=== PATIENT | female | born 1955 | race Caucasian/White ===

== ENCOUNTER 2022-01-10 09:30 | Outpatient (RCR) | payer MEDICARE, OTHER, SELFPAY ==
--- NOTE | 2021-10-27 14:15 | HP.PTEVAL_ITS ---
Patient's Visit Information KISHOR BACK is a 66 year old F referred to Physical Therapy by MARTITA HENDERSON with a diagnosis of L TKA, DOS: 10/21/21. Date of Evaluation: 10/27/21 Physical Therapist: Rishi Basilio DPT - Visit Plan Frequency: 2-3x /Week Duration: 4-6 Weeks Plan: Start with progression L knee ROM focus on end ranges. Add in HS and quad stretching. Joint mobilization to assist with mobility. Progress gait training as able. Ice for pain control, vaso if needed for edema. - Subjective Pt. is here today for her initial evaluation with diagnosis of L TKA. DOS: 10/21/21. Pt. arrives today with FWW with reports of increased knee and thigh pain. I talked to her about this being expected. She denies N/T, no calf pain, no dizziness, no fever. She has been doing her HEP as prescribed by her physician. She is talking Vicodin every 6 hours with Tylenol in between. She had increased pain in her thigh last night, but had been doing better. She noticing increased bruising at inner thigh over the past few days, she reports being co ncerned about this as well. 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 She would like to get back to all of these activities without limitations. - Pain L knee Pain Intensity (Out of 10): 6 Pain Intensity Range: 2, 9 - Objective POSTURE: Pt. has slight flexed posture. She lack TKE on R side with use of FWW. PALPATION: Pt. has tenderness throughout L thigh, medial aspect. Slight bruising. No signs of infection noted. Negative Homans sign. She has increased edema in her L knee 2cm increase at mid patella. NEURO: normal sensation and normal DTR of B Achilles. Pt. is able to rise on heels and toes with balance aide. ROM: L knee: 0-10-68deg. Painful at end ranges. MMT: LLE: ankle 5/5 throughout; knee: ext 0#, flexion 5#; hip: flexion 0#, abd 0#, ext 0#. GAIT: Pt. ambulates with FWW with slight low of TKE during L stance phase. Pt. has minimal flexion during swing phase. No antalgic pattern noted. STAIRS: step to pattern with 2 HR with reciprocal pattern, loading RLE only. - Balance/Special Test Scores Lower Extremity Functional Score: 16 TUG Test Time Seconds: 37 WOMAC Total Score: 44 WOMAC Percentatge: 54.1700 - Goals Goal 1:: LTG: Pt. to be I with HEP for L knee ROM and strength. Goal Time Frame: 4-6 Weeks Goal 2:: STG: Pt. to sleep throughout the night with 0-2/10 pain in LLE. Goal Time Frame: 2-4 Weeks Goal 3:: STG: Pt. to have increased L knee ROM to 0-0-120deg allowing for increased tolerance to all functional mobility. Goal Time Frame: 2-4 Weeks Goal 4:: LTG: Pt. to be able to ambulate without AD for 800'+ with normal gait pattern without increase in symptoms. Goal Time Frame: 4-6 Weeks Goal 5:: LTG: Pt. to negotiate 1 flight of stairs with 1 HR with reciprocal pattern without increase in symptoms. Goal Time Frame: 4-6 Weeks Goal 6:: LTG: pt. to complete TUG with time less than 10 second indicating increase in functional mobility. Goal Time Frame: 4-6 Weeks - Rehabilitation Potential Physical Therapy Diagnosis: Pt. has signs and symptoms consistent with L TKA with subsequent hypomobility, weakness, increased pain, difficulty with gait. Pt. would benefit from PT to address the above limitations progressing back to all recreational and work activities without limitations. Rehabilitation Potential: Excellent - Anticipated Interventions Patient/Client Instruction: Educate patient on: Condition, Plan of Care, Risk Factors, Benefits of Fitness Program For the Purpose of:: To facilitate caregiver knowledge, To improve self management, To prevent re-injury, To improve ability to perform tasks related to life management, To improve tolerance to ADL's Therapeutic Exercise to Include: Strength training, Power training, Endurance training, Coordination, Body mechanics, Postural training, Flexibilty training, Gait and locomotor training, Passive ROM, Active ROM For the Purpose of:: To decrease pain, To decrease swelling/inflammation, To increase ROM, To improve nutrient delivery to tissue, To increase oxygenation perfusion, To improve muscle performance and motor function, To improve gait and locomotor functions, To improve health of tissue, To decrease soft tissue restriction, To increase flexibility/ROM, To improve endurance, To improve balance, To improve safety with gait Manual Therapy Techniques to Include: Mobilization, Passive ROM, Soft tissue mobilization For the Purpose of:: To decrease pain, To decrease swelling/inflammation, To increase ROM, To improve nutrient delivery to tissue, To increase oxygenation perfusion, To improve muscle performance and motor function, To decrease soft tissue restriction, To increase flexibility/ROM Cryotherapy (ice pack, ice massage): Yes Vasopneumatic device: Yes For the Purpose of:: To decrease pain, To decrease swelling/inflammation, To increase ROM Thank you for the opportunity to evaluate your patient. For Medicare and Medicare HMO plans, please review the plan of care and approve it. It will need to be FAXED BACK to us at [phone] for Medicare purposes. For Medicare only, by signing this I certify the plan of care. Please let me know if there are questions or concerns regarding this plan of care. Physician Signature: Date:
--- NOTE | 2021-11-29 14:22 | HP.PTREVAL ---
MARTITA HENDERSON, It has been my pleasure to treat KISHOR BACK over the last 11 visits for L TKA, DOS: 10/21/21. Please see the progress note below for an update on the physical therapy plan of care! Subjective: Pt. reports overall doing well. She still has some soreness with walking and swells with increased working. She has been working at home in basement 3-4 hours at a time. 1-2/10 pain in knee. Pt. arrives without AD. Objective/Function: ROM: L knee 0-2-111deg actively, PROM: 0-0-116deg. PT. has tight hamstring bilat. MMT: Pt. has good strength in BLEs 5-/5 throughout. L knee: ext 24.2#, flexion 17.8#. TU.3sec. GAIT: She ambulates without AD, but does have reduced TKE during stance phase and decreased L knee flexion during swing. I would lik her to work on this to improve her pattern. STAIRS: Pt. negotiates without issues. 1 HR with reciprocal pattern without issues. She is overall doing well. I would like her to have decreased symptoms with end range flexion and end range extension. She has been doing some exercises at home, mostly strengthening. She is planning to hike [place] this summer while on vacation. Plan Plan: I am recommending continued PT to work on strength and decreased symptoms with end range stretching allowing for better tolerance to walking and hiking near future. Balance/Gait/Functional tests - Balance/Special Test Scores Lower Extremity Functional Score: 16 TUG Test Time Seconds: 37 Tug Test: >30sec.=impaired mobility WOMAC Total Score: 44 WOMAC Percentage: 54.1700 Goals Goal 1:: LTG: Pt. to be I with HEP for L knee ROM and strength. Goal Time Frame: 4-6 Weeks Goal Progress: Progressing Goal 2:: STG: Pt. to sleep throughout the night with 0-2/10 pain in LLE. Goal Time Frame: 2-4 Weeks Goal Progress: Goal Met Goal 3:: STG: Pt. to have increased L knee ROM to 0-0-120deg allowing for increased tolerance to all functional mobility. Goal Time Frame: 2-4 Weeks Goal Progress: Progressing Goal 4:: LTG: Pt. to be able to ambulate without AD for 800'+ with normal gait pattern without increase in symptoms. Goal Time Frame: 4-6 Weeks Goal Progress: Progressing Goal 5:: LTG: Pt. to negotiate 1 flight of stairs with 1 HR with reciprocal pattern without increase in symptoms. Goal Time Frame: 4-6 Weeks Goal Progress: Progressing Goal 6:: LTG: pt. to complete TUG with time less than 10 second indicating increase in functional mobility. Goal Time Frame: 4-6 Weeks Goal Progress: Progressing Anticipated Interventions Patient/Client Instruction: Educate patient on: Condition, Plan of Care, Risk Factors, Benefits of Fitness Program For the Purpose of:: To facilitate caregiver knowledge, To improve self management, To prevent re-injury, To improve ability to perform tasks related to life management, To improve tolerance to ADL's Therapeutic Exercise to Include: Strength training, Power training, Endurance training, Coordination, Body mechanics, Postural training, Flexibilty training, Gait and locomotor training, Passive ROM, Active ROM For the Purpose of:: To decrease pain, To decrease swelling/inflammation, To increase ROM, To improve nutrient delivery to tissue, To increase oxygenation perfusion, To improve muscle performance and motor function, To improve gait and locomotor functions, To improve health of tissue, To decrease soft tissue restriction, To increase flexibility/ROM, To improve endurance, To improve balance, To improve safety with gait Manual Therapy Techniques to Include: Mobilization, Passive ROM, Soft tissue mobilization For the Purpose of:: To decrease pain, To decrease swelling/inflammation, To increase ROM, To improve nutrient delivery to tissue, To increase oxygenation perfusion, To improve muscle performance and motor function, To decrease soft tissue restriction, To increase flexibility/ROM Cryotherapy (ice pack, ice massage): Yes Vasopneumatic device: Yes For the Purpose of:: To decrease pain, To decrease swelling/inflammation, To increase ROM Please do not hesitate to contact me at [phone] by phone or if you have questions or concerns regarding this new plan of care! Sincerely, Rishi Basilio DPT
--- NOTE | 2022-01-10 10:05 | HP.PTREVAL_ITS ---
MARTITA HENDERSON, It has been my pleasure to treat KISHRO BACK over the last 20 visits for L TKA, DOS: 10/21/21. Please see the progress note below for an update on the physical therapy plan of care! Subjective: Pt. reports overall doing better. She reports 65% better overall. She continues to C/O increased stiffness at end ranges of motions, especially after being stationary for a bit. She reports walking better, but still has initial pain and pain at night. Objective/Function: ROM: AROM: 0-2-115deg. PROM 0-0-120deg Patient does report increased pain with end range overpressure, noted at medial compartment. MMT: 5/5 throughout without increase in symptoms. GAIT: Pt. tends to slightly limit flexion during swing phase, and lacks slight TKE during stance. Improved both directions with VCing and with increased time walking. TU.3sec no AD. STAIRS: 1 HR reciprocal pattern mild increase with ascending, slightly more in crease with descending. Overall she is doing better. She still c/o increased stiffness at times. I would lover he to have increased TKE during gait as well. She is going on hiking trip in 2 weeks. I will work with her on her limitations progressing to her trip. Plan Plan: I will continue to see her x1 per week leading up to her vacation. Balance/Gait/Functional tests - Balance/Special Test Scores Lower Extremity Functional Score: 48 TUG Test Time Seconds: 8.3 Tug Test: <10 sec.=free mobile WOMAC Total Score: 44 WOMAC Percentage: 54.1700 Goals Goal 1:: LTG: Pt. to be I with HEP for L knee ROM and strength. Goal Time Frame: 4-6 Weeks Goal Progress: Goal Met Goal 2:: STG: Pt. to sleep throughout the night with 0-2/10 pain in LLE. Goal Time Frame: 2-4 Weeks Goal Progress: Goal Met Goal 3:: STG: Pt. to have increased L knee ROM to 0-0-120deg allowing for increased tolerance to all functional mobility. Goal Time Frame: 2-4 Weeks Goal Progress: Progressing Goal 4:: LTG: Pt. to be able to ambulate without AD for 800'+ with normal gait pattern without increase in symptoms. Goal Time Frame: 4-6 Weeks Goal Progress: Progressing Goal 5:: LTG: Pt. to negotiate 1 flight of stairs with 1 HR with reciprocal pattern without increase in symptoms. Goal Time Frame: 4-6 Weeks Goal Progress: Progressing Goal 6:: LTG: pt. to complete TUG with time less than 10 second indicating increase in functional mobility. Goal Time Frame: 4-6 Weeks Goal Progress: Progressing Anticipated Interventions Patient/Client Instruction: Educate patient on: Condition, Plan of Care, Risk Factors, Benefits of Fitness Program For the Purpose of:: To facilitate caregiver knowledge, To improve self management, To prevent re-injury, To improve ability to perform tasks related to life management, To improve tolerance to ADL's Therapeutic Exercise to Include: Strength training, Power training, Endurance training, Coordination, Body mechanics, Postural training, Flexibilty training, Gait and locomotor training, Passive ROM, Active ROM For the Purpose of:: To decrease pain, To decrease swelling/inflammation, To increase ROM, To improve nutrient delivery to tissue, To increase oxygenation perfusion, To improve muscle performance and motor function, To improve gait and locomotor functions, To improve health of tissue, To decrease soft tissue restriction, To increase flexibility/ROM, To improve endurance, To improve balance, To improve safety with gait Manual Therapy Techniques to Include: Mobilization, Passive ROM, Soft tissue mobilization For the Purpose of:: To decrease pain, To decrease swelling/inflammation, To increase ROM, To improve nutrient delivery to tissue, To increase oxygenation perfusion, To improve muscle performance and motor function, To decrease soft tissue restriction, To increase flexibility/ROM Cryotherapy (ice pack, ice massage): Yes Vasopneumatic device: Yes For the Purpose of:: To decrease pain, To decrease swelling/inflammation, To increase ROM Please do not hesitate to contact me at [phone] by phone or if you have questions or concerns regarding this new plan of care! Sincerely, Rishi Basilio DPT
== END 2022-01-10 19:00 | disposition home or self-care (01) ==
LOC: PT 09:30
PROVIDERS: PCP Family Medicine
DX: M17.12 Unilateral primary osteoarthritis, left knee (principal); Z47.1 Aftercare following joint replacement surgery; Z96.652 Presence of left artificial knee joint
CPT/HCPCS: 97016; 97110; 97161; 97164; 97802

== ENCOUNTER 2023-02-10 21:45 | Emergency (ER) | payer MEDICARE, OTHER, SELFPAY ==
--- NOTE | 2023-02-10 | RAD_ITS ---
INDICATION: fracture -- gravity stress view EXAMINATION/TECHNIQUE: X-RAY - LEFT Single AP gravity stress. COMPARISON: X-rays from earlier same day. FINDINGS: SOFT TISSUES: Lateral ankle soft tissue swelling. BONES/JOINTS: Stable nondisplaced fracture of the distal fibula. No significant degenerative changes. No erosive changes. RAD/Ankle 2 Views IMPRESSION: Nondisplaced fracture of the distal fibula. Electronically Signed: Cyril Hughes DO at 0:24 EDT ,
[2023-02-10 21:52] VITALS: BP 204/87; PULSE 89; RESP 18; TEMP 36.2; BMI 27.3
[2023-02-10 21:58] VITALS: BP 204/87; PULSE 89; RESP 16; TEMP 36.2
--- NOTE | 2023-02-10 22:08 | RAD_ITS ---
STUDY: X-RAY - LEFT KNEE REASON FOR EXAM: Female, 67 years old. trauma TECHNIQUE: 4 view(s) of the knee. COMPARISON: None. FINDINGS: Normal visualized distal femur. Normal visualized proximal tibia and fibula. Normal proximal tibiofibular articulation. Status post total knee arthroplasty. The prosthesis appears located. No ostial lysis to suggest loosening. . The soft tissue structures are unremarkable. RAD/Knee 4 or More Views IMPRESSION: Normal x-ray examination of the knee after total knee arthroplasty. Electronically Signed: Leighton Tomas MD at 23:05 EDT ,
--- NOTE | 2023-02-10 22:11 | ED.VIS.LOWEX ---
HPI History of Present Illness Chief Complaint: Lower Extremity Injury Informant: patient Narrative Narrative: Theo patient was mowing a ditch, and she slipped, her left lower extremity twisted, she felt a crack, pain mostly in her ankle. She describes sort of a flexion and a valgus mechanism at the knee, and she thought she injured her knee but it really has not been hurting. There is an area that is swollen a little and she had a total knee remotely. She was able to put weight on her left lower extremity immediately afterwards, but not now that her ankle is more painful and swollen laterally. No other injuries. No prodromal symptoms. Takes baby aspirin due to a remote history of a CABG, no anticoagulants. [facility] Medical History (Updated 02/10/23 @ 22:[address] Otf Conley MD) Diabetes mellitus Essential hypertension Rotator cuff arthropathy of both shoulders Home Medications aspirin 81 mg tablet,delayed release (Adult Aspirin Regimen) 81 mg PO DAILY 02/10/23 [History Last Taken Unknown] tramadol 50 mg tablet 50 mg PO Q6H PRN pain 3 days #12 tabs 02/11/23 [Rx Last Taken Unknown] Allergy/AdvReac Type Severity Reaction Status Date / Time aliskiren [From Tekturna] Allergy Rash Verified 02/10/23 22:04 hydralazine Allergy Rash Verified 02/10/23 22:04 metoprolol [From Toprol XL] Allergy Other Verified 02/10/23 22:04 valsartan [From Diovan] Allergy Anaphylaxis Verified 02/10/23 22:04 nebivolol [From Bystolic] AdvReac Shortness Verified 02/10/23 22:04 of breath nisoldipine [From Sular] AdvReac Swelling Verified 02/10/23 22:04 Surgical History (Updated 02/10/23 @ 22:17 by Amor Estrada) History of appendectomy S/P triple vessel bypass (~2016) Social History Smoking Status: Never smoker ROS ROS ED Constitutional Constitutional ED: Denies chills or fever(s) Musculoskeletal Musculoskeletal: Reports extremity pain; Denies neck pain Integumentary Denies Abrasions, rash or wounds Neurologic Neurologic: Denies paresthesias or weakness EXAM Physical Exam Const Vital Signs: 02/10/23 21:52 02/10/23 21:58 Temperature 97.2 F L 97.2 F L Temperature Source Temporal Temporal Pulse Rate 89 89 Respiratory Rate 18 16 Blood Pressure 204/87 H 204/87 H Blood Pressure Mean 126 126 Positive well nourished and well developed General Appearance ED: well developed and NAD Neck full ROM and supple Back/Spine normal ROM and normal to inspection Extremity Extremity Narrative: Limited range of motion of the left ankle. Swollen laterally and tender at the malleolus there, nontender to medial malleolus, base of the fifth metatarsal, proximal fibula. No deformity. Nontender throughout the rest of the foot. No bony tenderness throughout the left knee, and she is full range of motion. There is some mild swelling at the lateral aspect anteriorly at the joint line, just lateral to the patella. All ligaments are stable with short endpoints and no pain on stressing. Neuro oriented x3, no focal motor deficits and no sensory deficits noted Sensorium / Orientation: alert Psych mental status grossly normal and thought process normal Skin no wounds Rashes: no rashes MDM MDM MDM Narrative Medical decision making narrative: Three-view x-ray series of the left ankle shows a nondisplaced oblique distal fibula fracture on my interpretation, but difficult to tell on radiography if it is a Mena B or a Mena C. Her knee x-rays 4 views of my interpretation negative for any acute fracture or dislocation radiology in agreement with both of these. Discussing with the patient, I recommend nonweightbearing status and follow-up with orthopedics. She states in a few days she is leaving for [place] on a trip to visit family. She really wants to be able to bear weight if it is safe. Therefore although she was okay waiting for it, I did a gravity stress view of the fracture. 1 view on my interpretation shows no opening of the mortise. Discussed with Dr. Norris, agrees this is more consistent with a Mena B and patient should be okay with partial weightbearing in the boot, I discussed all this with her so we will skip crutches and she is comfortable with that plan. Offered analgesics but she declined. Radiography Diagnostic Testing: Clinical Impression(s) from Imaging Studies Knee X-Ray 02/10/23 22:08 IMPRESSION: Normal x-ray examination of the knee after total knee arthroplasty. Electronically Signed: Leighton Tomas MD at 23:05 EDT Reading Location ID and State: [id number] / Tel , Service support , Ankle X-Ray 02/10/23 22:28 IMPRESSION: Acute nondisplaced oblique fracture of the distal left fibula at the level tibial plafond with lateral soft tissue swelling. Electronically Signed: Leighton Tomas MD at 23:06 EDT , Management Discussion w/another healthcare provider: [employer]ice Discharge Plan Triage Chief Complaint: Lower Extremity Injury ED Provider: Otf Conley Dx/Rx/DC Orders Clinical Impression: Sprain of left knee, Closed fracture of left distal fibula Instructions: ED Ankle Fracture, Distal Fibula Prescriptions: New tramadol 50 mg tablet 50 mg PO Q6H PRN (Reason: pain) 3 Days Qty: 12 0RF Continued aspirin [Adult Aspirin Regimen] 81 mg tablet,delayed release (DR/EC) 81 mg PO DAILY Primary Care Provider: Denise Quinteros Referrals: Hema Gillespie DO [Med Staff - Active Staff] - As soon as possible (call for appt) Denise Quinteros DO [Primary Care Provider] - Disposition Disposition: Home, Self Care
--- NOTE | 2023-02-10 22:28 | RAD_ITS ---
STUDY: X-RAY - LEFT ANKLE REASON FOR EXAM: Female, 67 years old. trauma TECHNIQUE: 3 view(s) of the ankle. COMPARISON: None. FINDINGS: Acute nondisplaced oblique fracture of the distal left fibula at the level of tibial plafond. Normal medial and lateral malleoli. Normal tibiotalar articulation and ankle mortise. Normal visualized talus and calcaneus. The visualized subtalar, talonavicular, calcaneocuboid and tarsal articulations are normal. Associated lateral soft tissue swelling. RAD/Ankle min 3 Views IMPRESSION: Acute nondisplaced oblique fracture of the distal left fibula at the level tibial plafond with lateral soft tissue swelling. Electronically Signed: Leighton Tomas MD at 23:06 EDT ,
== END 2023-02-11 00:47 | disposition home or self-care (01) ==
PROVIDERS: Emergency Provider Emergency Medicine; PCP Family Medicine; Visit Provider Emergency Medicine
DX: S82.435A Nondisplaced oblique fracture of shaft of left fibula, initial encounter for closed fracture (principal); E11.9 Type 2 diabetes mellitus without complications; I10 Essential (primary) hypertension; S83.92XA Sprain of unspecified site of left knee, initial encounter; Z95.1 Presence of aortocoronary bypass graft; Z79.82 Long term (current) use of aspirin; Z90.49 Acquired absence of other specified parts of digestive tract; W18.49XA Other slipping, tripping and stumbling without falling, initial encounter; Y93.89 Activity, other specified; Y92.89 Other specified places as the place of occurrence of the external cause
CPT/HCPCS: 73564; 73600; 73610; 99283

== ENCOUNTER → 2023-03-02 | Outpatient (CLI) | payer MEDICARE, OTHER, SELFPAY ==
--- NOTE | 2023-03-02 14:51 | VDLE_ITS ---
Reason For Study: swelling Procedure LEFT This is a venous duplex using B-mode, color GSV is normal. flow and spectral Doppler. CFV is compressible, spontaneous, phasic, Exam performed in department. competent, and demonstrates normal The exam was abbreviated due to the COVID 19 augmentation. protocol. FV is compressible, spontaneous, phasic, The exam was diagnostic. competent and demonstrates normal A preliminary report was called and/or faxed augmentation. to Lashay Winters. POP V is compressible, spontaneous, phasic, competent and demonstrates normal augmentation. T/P Trunk is compressible. PTV is compressible. LT PerV is compressible. Heterogeneous area behind the knee measuring 2.08 x .85 cm. Area is nonvascular. VL/Venous Duplex US, Unilateral Interpretation Summary Deep veins of the left lower extremity are patent and compressible segmentally. There is no evidence of left lower extremity deep vein thrombosis. Valvular competence appears intac t within the proximal deep venous system on the left . The left great saphenous vein appears patent a nd compressible segmentally. A non-vascular, heterogeneous structure is noted in the left popli teal space, measuring 2.08 cm x 0.85 cm. This probably represents a popliteal cyst. Clinical correlat ion is advised.. Ordering Physician: Lashay Winters Performed By: Ramirez Davis RVT
== END | disposition home or self-care (01) ==
LOC: CVS 14:50
PROVIDERS: PCP Family Medicine; Referring Provider Physician Assistant Surgical; Visit Provider Physician Assistant Surgical
DX: R22.42 Localized swelling, mass and lump, left lower limb (principal)
CPT/HCPCS: 93971

== ENCOUNTER → 2023-10-31 | Outpatient (CLI) | payer MEDICARE, OTHER, SELFPAY ==
--- NOTE | 2023-10-31 08:04 | CR.ITP_ITS ---
Diagnosis General Information Admitting Diagnosis: S/P PCI RAD Secondary Diagnosis: S/P CABG x 3 2017 Personal Learning Style:: Audio/Visual and Written Barriers to Learning: Vision Impairment Stage of change r/t lifestyle modifications:: Action Gave educational material for:: Treating Heart Disease, How The Heart Works, What it means to have Heart Disease, How Coronary Artery Disease is Diagnosed, Heart Procedures, What Heart Medications Do, Risk Factors & Modifications, Living an Active Life, Nutrition, Emotions & Heart Disease, Stress Management & Relaxation and Sleep Disorders & Heart Disease Education/Goals Individual Counseling: Initial Assessment: Abnormal Cholesterol Levels, High Blood Pressure and Overweight/Obesity Cardiac Rehabilitation Goals Personal Goals: Initial Assessment: Improve energy level, Participate in home exercise program, Get back to work, or to resume activities faster, Improve muscle strength and endurance and Improve diet and eating habits (eat healthier) Scale for measuring improvement of personal goals Diagnosis & Disease Process Outcomes/Goals: Pt IDs own risk factors & lifestyle modifications by Session 10, Verbalizes symptoms of angina & response by session 3. and Pt independently manages Plan/Interventions: Assist Pt to ID & engage in lifestyle modification to reduce CVD risk, Instruct on individual risk factors, Review symptoms of angina & emergency actions and Review secondary diagnosis & identify educational needs. Safety Referral to Physical Therapy: Yes Referral to [facility] Case Management: No Fall Risk Assessed:: No Assistive Devices:: None Exercise - Initial Assessment Visit Date of Eval: 10/31/23 Session #:: 0 (pre-program evaluation) Mets: Pre-: >7 METS for 30 minutes by discharge Physician Prescribed Exercise Modalities: Treadmill, Rower and Airdyne Frequency: 3x/week for 12 weeks [36 sessions] Intensity: 60-80% of age predicted maximum heart rate reserve Duration: 30 - 45 minutes Current METSs:: 3.0 Target Heart Rate:: 100-129 Resting Blood Pressure: 136/74 EKG Type: NSR Current Physical Activity or Exercising minutes: Sits < 3 hours daily. very ph ysically active. Currently walking about 2 mi. Outcomes & Goals Goals:: Verbalizes understanding of THR, RPE & goal METS by session 6, Documents in home exercise log/reports 30 min aerobic 5 day/wk by DC and Demonstrates accurate pulse taking by DC Intervention & Plan Exercise Program Goals: Instruct on personal THR & RPE, Instruct on MET level & personal MET goal, Show patient to take own pulse /validate performance until accurate and Instruct on home exercise Physical Activity Home Exercise Physical Activity - Home Exercise: Safe Exercise, Warm-up, Self-monitoring, Cool-Down, Home Exercise > 30 min Daily and Sitting Time <3 hours/daily Outcomes & Goals Outcomes/Goals: Demonstrates correct Warm-up/exercise Cool-Down (S3) if = 2.5 METs, Verbalizes symptoms of exercise intolerance by Session 3 (S3) and Demonstrate safe equipment use (S3) & follows exercise prescrition (6) Intervention & Plan Plan/Intervention: Instruct warm-up & cool-down if exercising at > 2 METs, Instruct on symptoms of exercise intolerance & actions to take, Instruct & monitor on saf and Assess intial functional capacity & safety risk Nutrition - Initial Assessment Program Goals Nutrition Program Goals Patient has diagnosis of Hyperlipidemia (ICD E78)?: Yes Visit Date of Eval: 10/31/23 Session #:: 0 (pre-program evaluation) Cholesterol/Lipids (Other Core Measures) Determine presence & major risk factors that modify LDL goal: Family history of premature CHD in Male < 55 years: female <65 yearsFa and Age men > 45 years; women >/= 55 years Outcomes/Goals: Pt IDs own risk factors & lifestyle modifications by Session 10, Verbalizes symptoms of angina & response by session 3. and Pt independently manages Intervention/Plan: Instruct on personal lipid levels & lipid goals/NCEP guidelines and Instruct on cholesterol Diabetes (Other Core Measures) Diabetes Type: Not Applicable Weight Mgt (Other Care) Not Applicable: Yes Height: 5 ft 3 in Weight:: 155 lb BMI: 27.4 Diagnosis Overweight/Obesity BMI> 30% ICD-10 E66: No Diagnosis High BMI/Morbid Obesity BMI> 35% ICD-10 Z68: No Outcomes/Goals: Pt sets, maintains & shows weight loss goal & trend during rehab Intervention/Plan: Instruct on ideal BMI & set weight loss goal w/patient Healthy Eating Habits Will attend diet classes:: Yes Outcomes/Goals:: Consume diet rich in vegs,fruits,whole grain/high fib er,fish,lean meat and Limit sat/trans fats,cholesterol & added salts & sugars Intervention/Plan:: Assess current eating habits Education Gave educational materials for:: Healthy eating Core - Initial Assessment Visit Date of Eval: 10/31/23 Session #:: 0 (pre-program evaluation) Medication Compliance Preventative Medication(s):: Aspirin, Clopidogrel/P2Y12 inhibit, Statin/lipid and Beta hardeep H/O mental health issues: depression, anxiety, or addiction?: No Doesn?t believe in the benefits of treatment?: No Believes medications are unnecessary or harmful?: No Expresses concern over the cost of medications?: No Outcomes/Goals: Verbalizes medications,desired effect & common side effects @ DC, Pt self-reports following medication regimen and Keeps card in wallet w/medications listed by DC Interventions/plans: Instruct on medication effects & side effects, Review medication list w/patient every two weeks and Instruct importance of taking meds as ordered & assist problem solving Tobacco Use Tobacco Use: Non-smoker Hypertension Hypertension Diagnosis:: Hypertension ICD-10 I10 Resting Blood Pressure:: 136/74 [place] [employer] Hypertension Guidelines Outcomes/Goals: Able to verbalize/achieve optimal blood pressure <130/80 and Incorporates diet changes & exercise for blood pressure control by DC Interventions/plan: Instruct on optimal blood pressure, hypertension & medications and Instruct on effects of sodium, alcohol, stress, exercise &hypertension Tobacco Cessation Referral Smoking Cessation Referral:: No Individual Education/Counseling:: No Education Schedule Given:: Yes Psychosocial - Initial Assess VIsit Date of Eval: 10/31/23 Session #:: 0 Not Applicable: Yes History of previous Mental disease:: No Target Goals Target Goals Psychosocial Test Tool Used:: [employer] Mobile QOL Cardiac and PHQ-9 Questionnaire phq-9 Severity Referral to Behavioral Health PS - Interventions: Yes: Attend Stress Management Classes and No: Referral to Behavioral Health if PHQ-9 score >9:, No: Referral to [facility] and No: Referral to Physician if PHQ-9 if score is 5-9: Outcomes/Goals: See list Psychosocial Outcomes/Goals:: ID's personal stressors & 2 strategies to manage stress by discharge Intervention/Plan: See List Interventions/Plan:: Assess stressors,coping strategies & signs of derpression on admission, Instruct/assist pt to develop coping & personal stress Mgt strategies, Instruct patient to recognize signs & symptoms of depression and Instruct patient to recog Patient Health Questionnaire PHQ-9 Screening Initial Assessment: 1. Little interest or pleasure in doing things: Not at all 2. Feeling down, depressed, or hopeless: Not at all 3. Trouble falling or staying asleep, or sleeping too much: Several days 4. Feeling tired or having little energy: Several days 5. Poor appetite or overeating: Not at all 6. Feeling bad about yourself -- or that you are a failure or have let yourself or your family down: Not at all 7. Trouble concentrating on things, such as reading the newspaper or watching television: Not at all 8. Moving or speaking so slowly that other people could have noticed. Or the opposite - being so fidgety or restless that you have been moving around a lot more than usual: Not at all 9. Thoughts that you would be better off , or of hurting yourself in some way: Not at all How difficult have these problems made it for you to do your work, take care of things at home, or get along with other people?: Not difficult at all Total Score: 2 ZENIA-Q SV Test Statements CAD is a disease of the arteries in the heart: False Examples of risk factors for heart disease: True Angina is chest pain or discomfort: True The benefits of resistance training include: True Eating more meat and dairy products: False Anti-platelet medications such as aspirin are important: True The only effective way to manage stress: False An exercise warm-up slowly increases heart rate: True Prepared, processed foods usually have high sodium: True Depression is common after a heart attack: True The statin medications lower cholesterol: True To control blood pressure, lower the amount of sodium: True If someone gets chest discomfort during walking: False Transfats are partially hydrogenated vegetable oils: True Sleep apnea that is not treated increases the risk: False To control cholesterol, one should become a vegetarian: False Someone knows if he/she is exercising at the right level: False Diabetes cannot be prevented with exercise & health eating: False Stress is a large risk for heart attack: True A diet that can help lower blood pressure is rich in: True Total Score Total Correct Responses: 19 Self-Efficacy 6-Item Scale Initial Assessment: We would like to know how confident you are in doing certain activities. Please select your confidence level for: Fatigue Select Number: 10 Physical Discomfort or Pain Select Number: 8 Emotional Distress Select Number: 8 Other Symptoms or Health Problems Select Number: 10 Different Tasks and Activities Select Number: 10 Medication Select Number: 10 Total Score:: 9 Nutrition Survey Nutrition Survey Instructions Scoring Instructions Nutrition Survey Initial: Have you lost >10 lbs over the past 2 months without trying?: No Are you following a special diet at home for diabetes, low fat, or low salt?: Yes Are you interested in meeting with a dietitian for help understanding your diet?: No Do you eat less than 3 meals a day?: No Do you eat fatty meats (baer, sausage, ribs, etc), fried foods, desserts, large amounts of salad dressings, margarine, butter, or cheese most days?: No Do you have food allergies? [Enter types in comment field]: No Do you eat in restaurants more than 3 times a week?: No Do you season food with salt, seasoning salt, or garlic salt?: Yes (Macadamia Nuts) Do you used canned, boxed, frozen meals, or soups, seasoning packets?: No Total Score:: 2 Exercise - Final/Discharge Physician Prescribed Exercise Modalities: Treadmill, Rower and Airdyne Frequency: 3x/week for 12 weeks [36 sessions] Intensity: 60-80% of age predicted maximum heart rate reserve Current METSs:: 3.0 Target Heart Rate:: 100-129 Nutrition - 30-Day Assessment Weight Mgt (Other Care) Height: 5 ft 3 in Weight:: 155 lb BMI: 27.4 Nutrition - 60-Day Assessment Weight Mgt (Other Care) Height: 5 ft 3 in Weight:: 155 lb BMI: 27.4 Core - 30-Day Assessment Visit Session #:: 0 (pre-program evaluation) Core - Final Assessment Hypertension Resting Blood Pressure:: 136/74 [place] [employer] Hypertension Guidelines Core - 60-Day Assessment Hypertension Resting Blood Pressure:: 136/74 [place] [employer] Hypertension Guidelines Psychosocial - 30-Day Assess Target Goals Target Goals Referral to Behavioral Health PS - Interventions: Yes: Attend Stress Management Classes and No: Referral to Behavioral Health if PHQ-9 score >9:, No: Referral to [facility] and No: Referral to Physician if PHQ-9 if score is 5-9: Psychosocial - 60-Day Assess Target Goals Target Goals Referral to Behavioral Health PS - Interventions: Yes: Attend Stress Management Classes and No: Referral to Behavioral Health if PHQ-9 score >9:, No: Referral to [facility] and No: Referral to Physician if PHQ-9 if score is 5-9: Psychosocial - 90-Day Assess Target Goals Target Goals Referral to Behavioral Health PS - Interventions: Yes: Attend Stress Management Classes and No: Referral to Behavioral Health if PHQ-9 score >9:, No: Referral to [facility] and No: Referral to Physician if PHQ-9 if score is 5-9: Psychosocial - Final Assessmen Target Goals Target Goals Referral to Behavioral Health PS - Interventions: Yes: Attend Stress Management Classes and No: Referral to Behavioral Health if PHQ-9 score >9:, No: Referral to [facility] and No: Referral to Physician if PHQ-9 if score is 5-9: Nutrition - 90-Day Assessment Weight Mgt (Other Care) Height: 5 ft 3 in Weight:: 155 lb BMI: 27.4 Nutrition - Final Assessment Program Goals Patient has diagnosis of Hyperlipidemia (ICD E78)?: Yes Weight Mgt (Other Care) Height: 5 ft 3 in Weight:: 155 lb BMI: 27.4
--- NOTE | 2023-10-31 08:04 | PCM.CR.HP2 ---
CR - History & Physical General Arrival date:: 10/31/23 Arrival time:: 08:05 Date of Referral:: 10/19/23 Date of CR Evaluation:: 10/31/23 Referring Physician: Dr. Rukhsana Ley [facility], [place], [place] Primary Diagnosis: PCI w/coronary stenting History of Present Cardiac Event Onset Date Coronary Artery Bypass Graft:: Yes Vessel: 05/31/2017 PTCA or coronary stenting:: Yes Vessel: RAD Type of Symptoms:: Heaviness in the chest, burning sensation across the upper chest. More frequent episodes. Interventions with present event:: Stress, Echocardiogram, Heart cath Were there any complications?: None Medications Ambulatory Orders Medication Instructions Recorded aspirin 81 mg tablet,delayed 81 mg PO DAILY 02/10/23 release (Adult Aspirin Regimen) tramadol 50 mg tablet 50 mg PO Q6H PRN pain 3 days #12 02/11/23 tabs aspirin 81 mg tablet,delayed 81 mg PO DAILY 10/31/23 release (Adult Aspirin Regimen) clonidine HCl 0.2 mg tablet 0.2 mg PO TID 10/31/23 clopidogrel 75 mg tablet (Plavix) 75 mg PO DAILY 10/31/23 coQ10 (ubiquinol) 100 mg capsule 200 mg PO DAILY 10/31/23 (Qunol Jerry CoQ10) furosemide 20 mg tablet (Lasix) 20 mg PO DAILY 10/31/23 hawthorn 500 mg capsule (hawthorn mg PO 10/31/23 howard) nifedipine 30 mg tablet,extended 30 mg PO DAILY 10/31/23 release 24 hr nitroglycerin 0.4 mg sublingual 0.4 mg sublingual Q5M 10/31/23 tablet (Nitrostat) potassium chloride 8 mEq 8 meq PO DAILY 10/31/23 tablet,extended release (Klor-Con) ranolazine 500 mg tablet,extended 500 mg PO BID 10/31/23 release,12 hr rosuvastatin 5 mg tablet (Crestor) 5 mg PO DAILY 10/31/23 trazodone .ROUTE 10/31/23 Allergies Allergies aliskiren [From Tekturna] Allergy (Verified 02/10/23 22:04) Rash hydralazine Allergy (Verified 02/10/23 22:04) Rash metoprolol [From Toprol XL] Allergy (Verified 02/10/23 22:04) Other INCREASES BP valsartan [From Diovan] Allergy (Verified 02/10/23 22:04) Anaphylaxis nebivolol [From Bystolic] Adverse Reaction (Verified 02/10/23 22:04) Shortness of breath nisoldipine [From Sular] Adverse Reaction (Verified 02/10/23 22:04) Swelling Sleep Disorder Evaluation Hx of Sleep Apnea: Yes Do you snore loudly (louder than talking or can be heard through closed doors)?: Yes Do you often feel tired/ fatigued/ sleepy during daytime?: No Has anyone observed you stop breathing during sleep?: Yes History of Hypertension (for STOP score): Yes STOP Results: Positive - not using now Advanced Directives Advanced Directives Power of Stacker Tender: Yes Living Will: Yes Advance Directives Information Provided: No Advance Directives on File: No DNR Order?:: No MOLST See MOLST form: No Past Medical History Covid-19 Screening Physicial Symptoms Fever: No Unexplained muscle aches: No Current respiratory symptoms: No Upper respiratory infections symptoms: No Gastro-intestinal symptoms: No Qdw-Mjtc-Rkihcr symptoms: No Other Clinical Concerns Has tested positive for COVID-19 in last 30 days: No Exposure Risk Had contact w/person w/symptoms or Covid-19 (+) last 14 days: No Has High Risk Exposures ID'd by Health dept/Inf Control team: No Pertinent Comorbidities 65 years or older:: Yes Lives in Assisted Living facility:: No Has a chronic lung disease or moderate to severe asthma:: No Has a serious heart condition:: Yes Immunocompromised:: No Severely obese (Body Mass Index of 40 or higher):: No Diabetic:: No Has chronic kidney disease undergoing dialysis:: No Has liver disease:: No Past Medical Illness Past Medical History (Updated 10/31/23 @ 08:24 by Marcos Maldonado, [employer]URNER SPLITTER MACHINE OPERATOR, [employer]GS[employer] FILLER, BS) Arthralgia M25.50 Benign hypertension I10 BMI 27.0-27.9,adult Z68.27 CAD (coronary artery disease) I25.10 Carpal tunnel syndrome, bilateral G56.03 Diabetes mellitus E11.9 Elevated TSH R79.89 Essential hypertension I10 FHx: cholecystectomy Z83.79 Hyperlipidemia E78.5 Hypertensive emergency I16.1 Insomnia G47.00 Obstructive sleep apnea G47.33 Rotator cuff arthropathy of both shoulders M12.811, M12.812 Rotator cuff arthropathy of right shoulder M12.811 Rotator cuff impingement syndrome of left shoulder M75.42 Past Surgical History Past Surgical History (Updated 10/31/23 @ 08:24 by Marcos Maldonado CRT, HOGSHEAD FILLER, BS) H/O section Z98.891 H/O parathyroidectomy Z98.890, Z90.89 H/O: hysterectomy Z90.710 History of appendectomy Z90.49 History of cardiac cath Z98.890 Hx of knee surgery Z98.890 S/P triple vessel bypass (~2017) Z95.1 Family History Summary Family History (Updated 10/31/23 @ 08:26 by Marcos Maldonado, NISSA, HOGSHEAD FILLER, BS) Father Heart disease Hypertension Brother Heart disease Mother Diabetes CVA (cerebral vascular accident) Social History Smoking History Smoking Status: Never smoker Hx Tobacco Use: No Hx Smoking Exposure: No Alcohol Use Alcohol Usage: No Substance Abuse Hx Substance Use: No Occupation Occupation (List type of work in comments):: 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[employer], 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, 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.) Hobbies, Recreation, Social Activities Hobbies: Exercise (Biking leisure, bike trails etc.) and Other (Essential oils business, homemade soaps) Recreational Activities: I am able to engage in most, but not all activities Social Environment Status Marital Status: Current Living Arrangements Living Environment:: Alone Children How many children do you have?: 2 Do any of your children live nearby?: Yes (Daughter local, son in [place]) Safety Do you feel safe in your surroundings?: Yes Assistance Do you need any assistance at home?: No Review of Systems Review of Systems Hints Review of Present Symptoms: Reports Angina (Once in a while momentary thing, just one nitro took care of it was the only time occurred.), Appetite - Normal, Appetite - Special Diet (Heart Heathly, no added sugars) and Sleep - Normal; Denies Shortness of Breath at Rest, Shortness of Breath with Exertion, PVD, Operative Discomfort, Dizziness/Lightheadedness or Heart Arrhythmia/Irregularities (used to have palpitations 30-day event monitor 5 years ago. Nothing since.) Pain Is Patient Pain Free?: No Pain Location: none Pain Level: 0/10 Risk Factor Assessment Vital Signs Temperature: 97.9 F Respiratory Rate: 14 Pulse Ox: 95 Blood Pressure: 134/76 Pulse Pulse Rate: 74 Pulse Rhythm: Regular Hypertension How long have you been treated?: 2001 started on BP meds On medication(s)?: Yes (see list) Blood Pressure Sitting - Left Arm: 134/76 Diabetes Nutrition Referral for Diabetes: No Obesity Height: 5 ft 3 in Weight:: 155 lb Weight in Pounds: 155.0 lbs Weight Source: Stated by Patient Body Mass Index (BMI): 27.4 Nutritional Referral for Obesity: Yes Physical Inactivity Physical Inactivity: Reg Exercise 30 min/day Risk Stratification Risk Guidelines: Lowest Risk: Risk Factor for Dyslipidemia, Risk Factor for Sedentary Lifestyle and Risk Factor for Depression and Moderate Risk: Risk Factor for Obesity and Risk Factor for Hypertension (134/76) For Smoking Smoking Risk Guidelines For Dyslipidemia Dyslipidemia Risk Guidelines For Diabetes Mellitus Diabetes Risk Guidelines For Obesity/Overweight Obesity/Overweight Risk Guidelines For Hypertension Hypertension Risk Guidelines For Sedentary Lifestyle Sedentary Lifestyle Risk Guidelines For Depression Depression Risk Guidelines Family History Family History (Updated 10/31/23 @ 08:26 by Marcos Maldonado, TURNER SPLITTER MACHINE OPERATOR, HOGSHEAD FILLER, BS) Father Heart disease Hypertension Brother Heart disease Mother Diabetes CVA (cerebral vascular accident) Motivation Motivation to Participate On a scale of 1 to 10, how prepared are you to commit to attending program?: 10 What do you see as barriers to successfully being able to complete the program?: no What do you see as the benefits of succesfully completing the program? In other words, what do you hope to get out of participating in the program?: getting back to regular exercise and biking, normal activities and being ok Are there issues you are dealing with that will interfere with completing the program?: no Do you have a spouse or signficant other, family or friends who will help support you to complete the program?: Yes
[2023-10-31 08:44] VITALS: BP 134/76; PULSE 74; RESP 14; TEMP 36.6; O2SAT 95; BMI 27.4
[2023-10-31 09:12] VITALS: BP 136/74; BMI 27.4
== END | disposition home or self-care (01) ==
PROVIDERS: PCP Family Medicine
DX: Z95.5 Presence of coronary angioplasty implant and graft (principal); E11.9 Type 2 diabetes mellitus without complications; R06.83 Snoring; I10 Essential (primary) hypertension; M25.50 Pain in unspecified joint; I25.10 Atherosclerotic heart disease of native coronary artery without angina pectoris; G56.03 Carpal tunnel syndrome, bilateral upper limbs; R79.89 Other specified abnormal findings of blood chemistry; Z83.79 Family history of other diseases of the digestive system; E78.5 Hyperlipidemia, unspecified; I16.1 Hypertensive emergency; G47.00 Insomnia, unspecified; G47.33 Obstructive sleep apnea (adult) (pediatric); Z98.891 History of uterine scar from previous surgery; Z98.890 Other specified postprocedural states; Z90.89 Acquired absence of other organs; Z90.710 Acquired absence of both cervix and uterus; Z90.49 Acquired absence of other specified parts of digestive tract; Z95.1 Presence of aortocoronary bypass graft

== ENCOUNTER 2023-11-13 09:30 | Outpatient (RCR) | payer MEDICARE, OTHER, SELFPAY ==
[2023-10-31 09:12] VITALS: BMI 27.4
== END 2023-11-14 23:59 ==
LOC: CR 09:30
PROVIDERS: PCP Family Medicine
DX: Z95.5 Presence of coronary angioplasty implant and graft (principal)
CPT/HCPCS: 93798

== ENCOUNTER 2023-11-20 09:12 | Emergency (ER) | payer MEDICARE, OTHER, SELFPAY ==
[2023-10-31 09:12] VITALS: BMI 27.4
[2023-11-20 09:13] VITALS: BP 162/89; PULSE 84; RESP 16; TEMP 36.1; O2SAT 98; BMI 27.4
--- NOTE | 2023-11-20 09:23 | EKG12_ITS ---
Test Reason : CP Blood Pressure : / mmHG Vent. Rate : 076 BPM Atrial Rate : 076 BPM P-R Int : 140 ms QRS Dur : 104 ms QT Int : 414 ms P-R-T Axes : 053 023 005 degrees QTc Int : 465 ms Normal sinus rhythm Incomplete right bundle branch block T wave abnormality, consider inferior ischemia Abnormal ECG Confirmed by Hema Manrique ([id number]), industrial editor DAVID WAHL ([id number]) on 11/21/2023 9:54:59 AM Referred By: JESUS/DARIEL Confirmed By:Hema Manrique
--- NOTE | 2023-11-20 09:30 | RAD_ITS ---
STUDY: X-RAY CHEST REASON FOR EXAM: Female, 68 years old. Chest pain TECHNIQUE: Single AP portable view of the chest. COMPARISON: None. FINDINGS: EKG electrodes are seen. The lungs are clear and expanded. There is no demonstrated pleural abnormality. Sternal cerclage wires and vascular clips are present from a prior sternotomy and coronary artery bypass graft procedure (CABG). Normal mediastinum and antionette. Normal visualized pulmonary arteries. There is atherosclerotic calcification of the aortic arch with tortuosity. Normal visualized thoracic spine. Surgical clips are seen in the lower cervical region. Evidence of prior bilateral rotator cuff surgery. There is no demonstrated abnormality of the visualized soft tissue structures of the upper abdomen. RAD/Chest 1 View (Portable) IMPRESSION: No acute abnormality is seen. Electronically Signed: Sunil Chandra MD at 9:53 EDT ,
[2023-11-20] MEDS: Aspirin 81 MG TAB.CHEW 324 MG PO (09:32)
[2023-11-20 09:36] VITALS: O2SAT 98
[2023-11-20 09:40] LABS: Absolute Lymphocyte Count 2.83 X10^3/uL (0.83-4.51); Basophil# 0.05 X10^3/uL; Basophil% 0.6 % (0-1); Eosinophil# 0.15 X10^3/uL; Eosinophils% 1.7 % (0-5); Hematocrit 47.9 % (37-47); Hemoglobin 15.8 g/dL (12.0-15.0); Lymphocyte # 2.83 X10^3/ul (0.83-4.51); Lymphocyte % 32.8 % (19-41); Mean Corpuscular Hgb 30.3 pg (27.0-32.0); Mean Corpuscular Volume 91.8 fL (81-99); Monocyte# 0.54 X10^3/uL; Monocyte% 6.3 % (0-10); NRBC Flagged by Analyzer 0 % (0-5); Neutrophil # 5.03 X10^3/uL (2.7-7.7); Neutrophil % 58.1 % (47-70); Platelet Count 427 K/mm3 (150-450); RBC Distribution Width CV 12.7 % (11.6-14.6); RBC Distribution Width SD 42.5 fl (35.1-43.9); Red Blood Count 5.22 M/mm3 (4.2-5.4); White Blood Count 8.6 K/mm3 (4.4-11.0)
[2023-11-20 09:51] LABS: Anion Gap 8 (5-15); BUN 15 mg/dL (7-18); BUN/Creat Ratio 15.4 RATIO (10-20); Calcium,Total 9.9 mg/dL (8.5-10.1); Chloride 107 mmol/L (98-107); Creatinine, Serum 0.97 mg/dL (0.55-1.02); EST Glomerular Filtration Rate 60 mL/min (>60); Est Glom Filt Rate - Afr Amer 73 mL/min (>60); Estimated Creatinine Clearance 52.19 ml/min; Glucose 136 mg/dL (74-106); Potassium 3.9 mmol/L (3.5-5.1); Sodium Level 138 mmol/L (136-145); Troponin-I HS (w/2H Reflex) 4 pg/mL (3.0-54.0)
--- NOTE | 2023-11-20 10:08 | ED.VIS.CHEST ---
HPI History of Present Illness Chief Complaint: Chest Pain Narrative Narrative: 68-year-old female presenting with chest pain. Patient states is very mild and feels like somebody is pushing her finger into the left side of her chest. She states he had this yesterday and it went away after nitroglycerin last about 10 minutes. Today her pain started about 830 and has been constant. She took 2 nitros today and it did not help. She went to cardiac rehab today and told to come to the ER due to the pain. Patient denies lightheadedness, dizziness, nausea, vomiting. Patient denies cough or shortness of breath. No lower extremity edema. Patient has not noted any chest discomfort when she is doing cardiac rehab. She has history of NSTEMI 6 months ago and had right coronary artery stented. She has history of occlusion of LAD and CABG. [facility] Medical History Arthralgia Benign hypertension BMI 27.0-27.9,adult CAD (coronary artery disease) Carpal tunnel syndrome, bilateral Diabetes mellitus Elevated TSH Essential hypertension FHx: cholecystectomy Hyperlipidemia Hypertension Hypertensive emergency Insomnia Obstructive sleep apnea Rotator cuff arthropathy of both shoulders Rotator cuff arthropathy of right shoulder Rotator cuff impingement syndrome of left shoulder Home Medications aspirin 81 mg tablet,delayed release (Adult Aspirin Regimen) 81 mg PO DAILY 02/10/23 [History Last Taken Unknown] tramadol 50 mg tablet 50 mg PO Q6H PRN pain 3 days #12 tabs 02/11/23 [Rx Last Taken Unknown] aspirin 81 mg tablet,delayed release (Adult Aspirin Regimen) 81 mg PO DAILY 10/31/23 [History Last Taken Unknown] clonidine HCl 0.2 mg tablet 0.2 mg PO TID 10/31/23 [History Last Taken Unknown] clopidogrel 75 mg tablet (Plavix) 75 mg PO DAILY 10/31/23 [History Last Taken Unknown] coQ10 (ubiquinol) 100 mg capsule (Qunol Jerry CoQ10) 200 mg PO DAILY 10/31/23 [History Last Taken Unknown] furosemide 20 mg tablet (Lasix) 20 mg PO DAILY 10/31/23 [History Last Taken Unknown] hawthorn 500 mg capsule (hawthorn howard) mg PO 10/31/23 [History Last Taken Unknown] nifedipine 30 mg tablet,extended release 24 hr 30 mg PO DAILY 10/31/23 [History Last Taken Unknown] nitroglycerin 0.4 mg sublingual tablet (Nitrostat) 0.4 mg sublingual Q5M 10/31/23 [History Last Taken Unknown] potassium chloride 8 mEq tablet,extended release (Klor-Con) 8 meq PO DAILY 10/31/23 [History Last Taken Unknown] ranolazine 500 mg tablet,extended release,12 hr 500 mg PO BID 10/31/23 [History Last Taken Unknown] rosuvastatin 5 mg tablet (Crestor) 5 mg PO DAILY 10/31/23 [History Last Taken Unknown] trazodone .ROUTE 10/31/23 [History Last Taken Unknown] Allergy/AdvReac Type Severity Reaction Status Date / Time aliskiren [From Tekturna] Allergy Rash Verified 11/20/23 09:13 hydralazine Allergy Rash Verified 11/20/23 09:13 metoprolol [From Toprol XL] Allergy Other Verified 11/20/23 09:13 valsartan [From Diovan] Allergy Anaphylaxis Verified 11/20/23 09:13 nebivolol [From Bystolic] AdvReac Shortness Verified 11/20/23 09:13 of breath nisoldipine [From Sular] AdvReac Swelling Verified 11/20/23 09:13 Family History Father Heart disease Hypertension Brother Heart disease Mother Diabetes CVA (cerebral vascular accident) Surgical History H/O section H/O parathyroidectomy H/O: hysterectomy History of appendectomy History of cardiac cath Hx of knee surgery S/P triple vessel bypass (~2016) Social History Smoking Status: Never smoker EXAM Physical Exam Const Vital Signs: 11/20/23 09:13 11/20/23 09:36 11/20/23 10:20 Temperature 97.0 F L Temperature Source Temporal Pulse Rate 84 57 L Respiratory Rate 16 14 Respiratory Effort Blood Pressure 162/89 H 156/78 H Blood Pressure Mean 113 104 Pulse Ox 98 98 98 Oxygen Delivery Method Room Air Room Air 11/20/23 10:21 11/20/23 11:00 11/20/23 12:00 Temperature Temperature Source Pulse Rate 58 L 52 L Respiratory Rate 16 15 Respiratory Effort Normal Non-Labored Blood Pressure 155/72 H 157/68 H Blood Pressure Mean 99 97 Pulse Ox 98 98 Oxygen Delivery Method Room Air Room Air General Appearance ED: Negative for pallor HEENT Reports normocephalic, head/scalp atraumatic and moist mucous membranes Eyes PERRL and EOMs intact bilaterally Neck no lymphadenopathy, supple and no JVD Chest Wall inspection of chest normal and palpation of chest normal Resp normal respiratory effort and clear to auscultation bilaterally Auscultation: Negative for rales, rhonchi or wheezes Cardio regular rate and regular rhythm Narrative: Deferred Extremity normal to inspection General Extremety ED: Negative for edema or tenderness General Extremity: Negative for edema Neuro oriented x3 and CN's II-XII intact bilaterally Sensorium / Orientation: alert Motor Exam: strength 5/5 throughout Psych mental status grossly normal Attitude: No agitated Skin no rashes or lesions noted General Skin Exam: Negative for jaundice or pallor Heart Score History: Slightly/Non-Suspicious ECG: Nonspecific Repolarization Age: >/= 65 years Risk Factors: >/= 3 Risk Factors or History of CAD Score: 5 MDM MDM MDM Narrative Medical decision making narrative: Patient presenting with chest discomfort. Differential includes ACS, costochondritis, pneumonia. Low suspicion for PE given the patient has no risk factors. Patient has no lower extremity edema, dyspnea this is a slight low suspicion for CHF vital signs are stable. Equal symmetric breath sounds so unlikely to be a pneumothorax. CBC will be obtained to assess white blood cell count, hemoglobin, platelets. BMP to assess renal function, electrolytes, glucose. High-sensitivity troponin and EKG to assess for ischemia/dysrhythmia. Chest x-ray to rule out pneumonia . Patient took her own home dose of nitroglycerin at 10:10 AM in the morning and states it did help her pain. She reports that her pain is nearly resolved. CBC shows white blood cell count of 8.6. Hemoglobin 15.8. Platelet count 427. Renal function electrolytes are normal. EKG shows a sinus rhythm at 76 bpm on my interpretation. No STEMI. High-sensitivity troponin is 4 and delta troponin is also 4. Chest x-ray on my interpretation shows no acute process. Radiology interpretation agrees. Given that the patient had pain all morning and she has 2 negative troponins I do believe she stable for discharge. 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 Impression 1. Chest pain Lab Data Attestation: I reviewed the patient's lab results. Labs: Laboratory Results - last 24 hr 11/20/23 11/20/23 09:20 11:45 WBC 8.6 RBC 5.22 Hgb 15.8 H Hct 47.9 H MCV 91.8 MCH 30.3 MCHC 33.0 RDW Std Deviation 42.5 RDW Coeff of Miya 12.7 Plt Count 427 MPV 9.0 Immature Gran % (Auto) 0.500 Neut % (Auto) 58.1 Lymph % (Auto) 32.8 Hawkins % (Auto) 6.3 Eos % (Auto) 1.7 Baso % (Auto) 0.6 Absolute Neuts (auto) 5.0 Absolute Lymphs (auto) 2.83 Nucleated RBC % 0 Sodium 138 Potassium 3.9 Chloride 107 Carbon Dioxide 23.0 Anion Gap 8 BUN 15 Creatinine 0.97 Estim Creat Clear Calc 52.19 Est GFR (MDRD) Af Amer 73 Est GFR (MDRD) Non-Af 60 BUN/Creatinine Ratio 15.4 Glucose 136 H Calcium 9.9 Troponin I High Sens 4 4 Radiography Diagnostic Testing: Clinical Impression(s) from Imaging Studies Chest X-Ray 11/20/23 09:30 IMPRESSION: No acute abnormality is seen. Electronically Signed: Sunil Chandra MD at 9:53 EDT Reading Location ID and State: [facility] / [place] , Service support , Discharge Plan Triage Chief Complaint: Chest Pain ED Provider: Mark Lowry Dx/Rx/DC Orders Instructions: ED Chest Pain, Noncardiac Prescriptions: No Action aspirin [Adult Aspirin Regimen] 81 mg tablet,delayed release (DR/EC) 81 mg PO DAILY tramadol 50 mg tablet 50 mg PO Q6H PRN (Reason: pain) 3 Days Qty: 12 0RF rosuvastatin [Crestor] 5 mg tablet 5 mg PO DAILY clopidogrel [Plavix] 75 mg tablet 75 mg PO DAILY clonidine HCl 0.2 mg tablet 0.2 mg PO TID ranolazine 500 mg tablet extended release 12 hr 500 mg PO BID aspirin [Adult Aspirin Regimen] 81 mg tablet,delayed release (DR/EC) 81 mg PO DAILY trazodone .ROUTE hawthorn howard 500 mg capsule PO coQ10 (ubiquinol) [Qunol Jerry CoQ10] 100 mg capsule 200 mg PO DAILY nifedipine 30 mg tablet extended release 24hr 30 mg PO DAILY nitroglycerin [Nitrostat] 0.4 mg tablet, sublingual 0.4 mg sublingual Q5M Rx Instructions: do not exceed 3 doses per episode potassium chloride [Klor-Con 8] 8 mEq tablet extended release 8 meq PO DAILY furosemide [Lasix] 20 mg tablet 20 mg PO DAILY Primary Care Provider: Denise Quinteros Referrals: Denise Quinteros DO [Primary Care Provider] - Disposition Disposition: Home, Self Care
[2023-11-20 10:20] VITALS: BP 156/78; PULSE 57; RESP 14; O2SAT 98
[2023-11-20 11:00] VITALS: BP 155/72; PULSE 58; RESP 16; O2SAT 98
[2023-11-20 11:30] LABS: Reflex Troponin-HS? (from REC) Y
[2023-11-20 12:00] VITALS: BP 157/68; PULSE 52; RESP 15; O2SAT 98
[2023-11-20 12:14] LABS: Troponin-I HS 4 pg/mL (3.0-54.0)
[2023-11-20 12:41] VITALS: BP 173/73; PULSE 69; RESP 16; TEMP 36.6; O2SAT 97
== END 2023-11-20 12:42 | disposition home or self-care (01) ==
PROVIDERS: Emergency Provider Student in an Organized Health Care Education/Training Program; PCP Family Medicine; Visit Provider Student in an Organized Health Care Education/Training Program
DX: R07.9 Chest pain, unspecified (principal); E11.9 Type 2 diabetes mellitus without complications; I25.2 Old myocardial infarction; Z95.5 Presence of coronary angioplasty implant and graft; I25.10 Atherosclerotic heart disease of native coronary artery without angina pectoris; I10 Essential (primary) hypertension; Z90.49 Acquired absence of other specified parts of digestive tract; E78.5 Hyperlipidemia, unspecified; Z79.82 Long term (current) use of aspirin; Z79.899 Other long term (current) drug therapy; Z79.02 Long term (current) use of antithrombotics/antiplatelets; Z90.710 Acquired absence of both cervix and uterus
CPT/HCPCS: 71045; 80048; 84484; 85025; 93005; 99285; A4216

== ENCOUNTER 2023-12-15 09:30 | Outpatient (RCR) | payer MEDICARE, OTHER, SELFPAY ==
[2023-10-31 09:12] VITALS: BMI 27.4
--- NOTE | 2023-11-27 08:19 | PCM.CR.ITP ---
Exercise - Initial Assessment Visit Session #:: 10 Nutrition - Initial Assessment Weight Mgt (Other Care) Height: 5 ft 3 in Weight:: 155 lb BMI: 27.4 Core - Initial Assessment Visit Date of Eval: 11/27/23 Session #:: 10 Medication Compliance Preventative Medication(s):: Aspirin, Clopidogrel/P2Y12 inhibit, Statin/lipid and Beta hardeep H/O mental health issues: depression, anxiety, or addiction?: No Doesn?t believe in the benefits of treatment?: No Believes medications are unnecessary or harmful?: No Has a concern about medication side effects?: No Expresses concern over the cost of medications?: No Outcomes/Goals: Verbalizes medications,desired effect & common side effects @ DC, Pt self-reports following medication regimen, Keeps card in wallet w/medications listed by DC and Other additional outcome/goals: Interventions/plans: Instruct on medication effects & side effects, Review medication list w/patient every two weeks, Instruct importance of taking meds as ordered & assist problem solving and Other additional Tobacco Use Tobacco Use: Non-smoker Hypertension Hypertension Diagnosis:: Hypertension ICD-10 I10 Resting Blood Pressure:: 116/68 [place] [employer] Hypertension Guidelines Peak Exercise Blood Pressure:: 140/62 Outcomes/Goals: Able to verbalize/achieve optimal blood pressure <130/80, Incorporates diet changes & exercise for blood pressure control by DC and Other additional outcomes/goals Interventions/plan: Instruct on optimal blood pressure, hypertension & medications, Instruct on effects of sodium, alcohol, stress, exercise &hypertension and Other additional plan/interventions Tobacco Cessation Referral Smoking Cessation Referral:: No Individual Education/Counseling:: No Education Schedule Given:: Yes Psychosocial - Initial Assess Target Goals Target Goals Patient Health Questionnaire PHQ-9 Screening 30-Day Re-eval Assessment: 1. Little interest or pleasure in doing things: Not at all 2. Feeling down, depressed, or hopeless: Not at all 3. Trouble falling or staying asleep, or sleeping too much: Several days 4. Feeling tired or having little energy: Several days 5. Poor appetite or overeating: Not at all 6. Feeling bad about yourself -- or that you are a failure or have let yourself or your family down: Not at all 7. Trouble concentrating on things, such as reading the newspaper or watching television: Not at all 8. Moving or speaking so slowly that other people could have noticed. Or the opposite - being so fidgety or restless that you have been moving around a lot more than usual: Not at all 9. Thoughts that you would be better off , or of hurting yourself in some way: Not at all How difficult have these problems made it for you to do your work, take care of things at home, or get along with other people?: Not difficult at all Total Score: 2 Self-Efficacy 6-Item Scale 30-Day Re-eval Assessment: We would like to know how confident you are in doing certain activities. Please select your confidence level for: Fatigue Select Number: 10 Physical Discomfort or Pain Select Number: 8 Emotional Distress Select Number: 8 Other Symptoms or Health Problems Select Number: 10 Different Tasks and Activities Select Number: 10 Medication Select Number: 10 Total Score:: 9 Nutrition Survey Nutrition Survey Instructions Scoring Instructions Exercise - 30-day Assessment Visit Date of Eval: 11/27/23 Session #:: 10 Physician Prescribed Exercise Modalities: Treadmill, Airdyne and NuStep Frequency: 3x/week for 12 weeks [36 sessions] Intensity: 60-80% of age predicted maximum heart rate reserve Duration: 30 - 45 minutes Current METSs:: 4.5 Target Heart Rate:: 100-129 Current RPE:: 12-13 Maximum Excercise HR:: 113 Resting Blood Pressure: 116/68 Maximum Exercise Blood Pressure: 140/62 EKG Type: NSR to ST w/BBB with a rare PAC,PVC Outcomes & Goals Goals:: Verbalizes understanding of THR, RPE & goal METS by session 6, Documents in home exercise log/reports 30 min aerobic 5 day/wk by DC, Demonstrates accurate pulse taking by DC and Other additional outcome/goals: see below Intervention & Plan Exercise Program Goals: Instruct on personal THR & RPE, Instruct on MET level & personal MET goal, Show patient to take own pulse /validate performance until accurate, Instruct on home exercise and Other additional plan/int 30-day Reassessments 30 day Reassessments:: Progressing Physical Activity Home Exercise Physical Activity - Home Exercise: Safe Exercise, Warm-up, Self-monitoring, Cool-Down, Home Exercise > 30 min Daily and Sitting Time <3 hours/daily Outcomes & Goals Outcomes/Goals: Demonstrates correct Warm-up/exercise Cool-Down (S3) if = 2.5 METs, Verbalizes symptoms of exercise intolerance by Session 3 (S3), Demonstrate safe equipment use (S3) & follows exercise prescrition (6) and Other: See below Intervention & Plan Plan/Intervention: Instruct warm-up & cool-down if exercising at > 2 METs, Instruct on symptoms of exercise intolerance & actions to take, Instruct & monitor on saf, Assess intial functional capacity & safety risk and Other See below 30-day Reassessments 30 day Reassessments:: Progressing Reassessment Notes & Comments:: warm up encouraged Nutrition - 30-Day Assessment Program Goals Nutrition Program Goals Patient has diagnosis of Hyperlipidemia (ICD E78)?: Yes Visit Date of Eval: 11/27/23 Session #:: 10 Cholesterol/Lipids (Other Core Measures) Determine presence & major risk factors that modify LDL goal: Hypertension or hypertensive medication, Low HDL cholesterol <40 mg/dL*, Family history of premature CHD in Male < 55 years: female <65 yearsFa and Age men > 45 years; women >/= 55 years Outcomes/Goals: Pt IDs own risk factors & lifestyle modifications by Session 10, Verbalizes symptoms of angina & response by session 3., Pt independently manages and Other Additional Outcomes/Goals: Intervention/Plan: Advocate for lipid panel cholesterol medication if applicable, Instruct on personal lipid levels & lipid goals/NCEP guidelines, Instruct on cholesterol and Other additional plan/int Diabetes (Other Core Measures) Diabetes Type: Not Applicable Weight Mgt (Other Care) Height: 5 ft 3 in Weight:: 155 lb BMI: 27.4 Diagnosis Overweight/Obesity BMI> 30% ICD-10 E66: No Diagnosis High BMI/Morbid Obesity BMI> 35% ICD-10 Z68: No Outcomes/Goals: Pt sets, maintains & shows weight loss goal & trend during rehab and Other additional outcomes/goals Intervention/Plan: Instruct on ideal BMI & set weight loss goal w/patient, Assist pt to ID & incorporate diet changes for weight loss by S9, Refer to Structured Weight Loss program as appropriate, Encourage goal of using 250-300dcal per session for weight loss and Other additional plan/interventions 30 day Reassessments:: Progressing Reassessment Notes & Comments:: pt to attend nutrition class Healthy Eating Habits Will attend diet classes:: Yes Outcomes/Goals:: Consume diet rich in vegs,fruits,whole grain/high fiber,fish,lean meat, Limit sat/trans fats,cholesterol & added salts & sugars and Other additional outcome/goals: Intervention/Plan:: Assess current eating habits and Other Additional plan/interventions 30-day Reassessments:: Progressing Reassessment Notes & Comments:: pt to attend nutrition class Education Gave educational materials for:: Signs & symptoms of hypoglycemia, Signs & symptoms of hyperglycemia, Relate diabetes to coronary artery disease and Healthy eating Nutrition - 60-Day Assessment Weight Mgt (Other Care) Height: 5 ft 3 in Weight:: 155 lb BMI: 27.4 Core - 30-Day Assessment Visit Date of Eval: 11/27/23 Session #:: 10 Medication Compliance Preventative Medication(s):: Aspirin, Clopidogrel/P2Y12 inhibit and Statin/lipid H/O mental health issues: depression, anxiety, or addiction?: No Doesn?t believe in the benefits of treatment?: No Believes medications are unnecessary or harmful?: No Has a concern about medication side effects?: No Expresses concern over the cost of medications?: No Outcomes/Goals: Verbalizes medications,desired effect & common side effects @ DC, Pt self-reports following medication regimen, Keeps card in wallet w/medications listed by DC and Other additional outcome/goals: Interventions/plans: Instruct on medication effects & side effects, Review medication list w/patient every two weeks, Instruct importance of taking meds as ordered & assist problem solving and Other additional 30-day Reassessments:: Progressing Reassessment Notes & Comments:: ranexa increased tp 1000 mg BID Tobacco Use Tobacco Use: Non-smoker Hypertension Hypertension Diagnosis:: Hypertension ICD-10 I10 Resting Blood Pressure:: 116/68 [place] [employer] Hypertension Guidelines Peak Exercise Blood Pressure:: 140/62 Outcomes/Goals: Able to verbalize/achieve optimal blood pressure <130/80, Incorporates diet changes & exercise for blood pressure control by DC and Other additional outcomes/goals Interventions/plan: Instruct on optimal blood pressure, hypertension & medications, Instruct on effects of sodium, alcohol, stress, exercise &hypertension and Other additional plan/interventions 30 day Reassessments:: Progressing Reassessment Notes & Comments:: pt encouraged to take her meds Tobacco Cessation Referral Smoking Cessation Referral:: No Individual Education/Counseling:: No Education Schedule Given:: Yes Core - Final Assessment Hypertension Resting Blood Pressure:: 116/68 [place] [employer] Hypertension Guidelines Core - 60-Day Assessment Hypertension Resting Blood Pressure:: 116/68 [place] [employer] Hypertension Guidelines Psychosocial - 30-Day Assess VIsit Date of Eval: 11/27/23 Session #:: 10 History of previous Mental disease:: No Target Goals Target Goals Outcomes/Goals: See list Psychosocial Outcomes/Goals:: ID's personal stressors & 2 strategies to manage stress by discharge and Other Additional outcome/goals: Intervention/Plan: See List Interventions/Plan:: Assess stressors,coping strategies & signs of derpression on admission, Instruct/assist pt to develop coping & personal stress Mgt strategies, Refer to Behavioral Health if appropriate, Refer to Physician if appropriate, Instruct patient to recognize signs & symptoms of depression, Instruct patient to recog and Other additional plan/intervention 30-day Reassessments: 30 day Reassessments:: Met Psychosocial - 60-Day Assess Target Goals Target Goals Outcomes/Goals: See list Psychosocial Outcomes/Goals:: ID's personal stressors & 2 strategies to manage stress by discharge and Other Additional outcome/goals: Psychosocial - 90-Day Assess Target Goals Target Goals Psychosocial - Final Assessmen Target Goals Target Goals Nutrition - 90-Day Assessment Weight Mgt (Other Care) Height: 5 ft 3 in Weight:: 155 lb BMI: 27.4 Nutrition - Final Assessment Weight Mgt (Other Care) Height: 5 ft 3 in Weight:: 155 lb BMI: 27.4
[2023-11-27 08:28] VITALS: BP 116/68; BP 140/62; BMI 27.4
== END 2023-12-15 23:59 ==
LOC: CR 09:30
PROVIDERS: PCP Family Medicine
DX: Z95.5 Presence of coronary angioplasty implant and graft (principal)
CPT/HCPCS: 93798

== ENCOUNTER 2024-01-12 09:30 | Outpatient (RCR) | payer MEDICARE, OTHER, SELFPAY ==
[2023-11-27 08:28] VITALS: BMI 27.4
[2023-12-16 01:13] VITALS: BP 116/68; BP 140/62
--- NOTE | 2023-12-29 05:03 | CR.ITP_ITS ---
Exercise - Initial Assessment Physician Prescribed Exercise Modalities: Treadmill, Schwinn Airdyne AD-7 and SciFit Stepper Nutrition - Initial Assessment Weight Mgt (Other Care) Height: 5 ft 3 in Weight:: 153 lb BMI: 27.1 Psychosocial - Initial Assess Target Goals Target Goals Referral to Behavioral Health PS - Interventions: Yes: Attend Stress Management Classes and No: Referral to Behavioral Health if PHQ-9 score >9:, No: Referral to [facility] and No: Referral to Physician if PHQ-9 if score is 5-9: Patient Health Questionnaire PHQ-9 Screening 60-Day Re-eval Assessment: 1. Little interest or pleasure in doing things: Not at all 2. Feeling down, depressed, or hopeless: Not at all 3. Trouble falling or staying asleep, or sleeping too much: Not at all 4. Feeling tired or having little energy: Not at all 5. Poor appetite or overeating: Not at all 6. Feeling bad about yourself -- or that you are a failure or have let yourself or your family down: Not at all 7. Trouble concentrating on things, such as reading the newspaper or watching television: Not at all 8. Moving or speaking so slowly that other people could have noticed. Or the opposite - being so fidgety or restless that you have been moving around a lot more than usual: Not at all 9. Thoughts that you would be better off , or of hurting yourself in some way: Not at all How difficult have these problems made it for you to do your work, take care of things at home, or get along with other people?: Not difficult at all Total Score: 0 Self-Efficacy 6-Item Scale 60-Day Re-eval Assessment: We would like to know how confident you are in doing certain activities. Please select your confidence level for: Fatigue Select Number: 10 Physical Discomfort or Pain Select Number: 10 Emotional Distress Select Number: 10 Other Symptoms or Health Problems Select Number: 10 Different Tasks and Activities Select Number: 10 Medication Select Number: 10 Total Score:: 10 Nutrition Survey Nutrition Survey Instructions Scoring Instructions Exercise - 30-day Assessment Physician Prescribed Exercise Modalities: Treadmill, Schwinn Airdyne AD-7 and SciFit Stepper Exercise - 60-day Assessment Visit Date of Eval: 12/29/23 Session #:: 20 Comments:: Patient has missed 3 days since starting on 11/03/2023 Physician Prescribed Exercise Modalities: Treadmill, Schwinn Airdyne AD-7 and SciFit Stepper Frequency: 3x/week for 12 weeks [36 sessions] Intensity: 60-80% of age predicted maximum heart rate reserve Duration: 30 - 45 minutes Current METSs:: 5.0 Target Heart Rate:: 100-129 Maximum Excercise HR:: 107 Resting Blood Pressure: 122/58 Maximum Exercise Blood Pressure: 150/64 EKG Type: Sinus rhtyhm to sinus tach w/BBB. Current Physical Activity or Exercising minutes: 34:52 Outcomes & Goals Goals:: Verbalizes understanding of THR, RPE & goal METS by session 6, Documents in home exercise log/reports 30 min aerobic 5 day/wk by DC and Demonstrates accurate pulse taking by DC Intervention & Plan Exercise Program Goals: Instruct on personal THR & RPE, Instruct on MET level & personal MET goal, Show patient to take own pulse /validate performance until accurate and Instruct on home exercise 30-day Reassessments 30 day Reassessments:: Met Physical Activity Home Exercise Physical Activity - Home Exercise: Safe Exercise, Warm-up, Self-monitoring, Cool-Down, Home Exercise > 30 min Daily and Sitting Time <3 hours/daily Outcomes & Goals Outcomes/Goals: Demonstrates correct Warm-up/exercise Cool-Down (S3) if = 2.5 METs, Verbalizes symptoms of exercise intolerance by Session 3 (S3) and Demonstrate safe equipment use (S3) & follows exercise prescrition (6) Intervention & Plan Plan/Intervention: Instruct warm-up & cool-down if exercising at > 2 METs, Instruct on symptoms of exercise intolerance & actions to take, Instruct & monitor on saf and Assess intial functional capacity & safety risk 30-day Reassessments 30 day Reassessments:: Met Exercise - 90-day Assessment Physician Prescribed Exercise Modalities: Treadmill, Schwinn Airdyne AD-7 and SciFit Stepper Exercise - Final/Discharge Physician Prescribed Exercise Modalities: Treadmill, Schwinn Airdyne AD-7 and SciFit Stepper Nutrition - 30-Day Assessment Weight Mgt (Other Care) Height: 5 ft 3 in Weight:: 153 lb BMI: 27.1 Nutrition - 60-Day Assessment Program Goals Nutrition Program Goals Patient has diagnosis of Hyperlipidemia (ICD E78)?: Yes Visit Date of Eval: 12/29/23 Session #:: 20 Cholesterol/Lipids (Other Core Measures) Determine presence & major risk factors that modify LDL goal: Hypertension or hypertensive medication and Age men > 45 years; women >/= 55 years Outcomes/Goals: Pt IDs own risk factors & lifestyle modifications by Session 10, Verbalizes symptoms of angina & response by session 3. and Pt independently manages Intervention/Plan: Instruct on personal lipid levels & lipid goals/NCEP guidelines and Instruct on cholesterol Referral to dietitian:: Yes 30-day Reassessments:: Met Diabetes (Other Core Measures) Diabetes Type: Not Applicable Weight Mgt (Other Care) Not Applicable: Yes Height: 5 ft 3 in Weight:: 153 lb BMI: 27.1 Diagnosis Overweight/Obesity BMI> 30% ICD-10 E66: No Diagnosis High BMI/Morbid Obesity BMI> 35% ICD-10 Z68: No Outcomes/Goals: Pt sets, maintains & shows weight loss goal & trend during rehab Intervention/Plan: Instruct on ideal BMI & set weight loss goal w/patient and Encourage goal of using 250-300dcal per session for weight loss 30 day Reassessments:: Met Healthy Eating Habits Will attend diet classes:: Yes Outcomes/Goals:: Consume diet rich in vegs,fruits,whole grain/high fiber,fish,lean meat and Limit sat/trans fats,cholesterol & added salts & sugars Intervention/Plan:: Assess current eating habits 30-day Reassessments:: Met Education Gave educational materials for:: Healthy eating Core - 60-Day Assessment Visit Date of Eval: 12/29/23 Session #:: 20 Medication Compliance Preventative Medication(s):: Aspirin and Clopidogrel/P2Y12 inhibit H/O mental health issues: depression, anxiety, or addiction?: No Doesn?t believe in the benefits of treatment?: No Believes medications are unnecessary or harmful?: No Has a concern about medication side effects?: No Expresses concern over the cost of medications?: No Outcomes/Goals: Verbalizes medications,desired effect & common side effects @ DC, Pt self-reports following medication regimen and Keeps card in wallet w/medications listed by DC Interventions/plans: Instruct on medication effects & side effects, Review medication list w/patient every two weeks and Instruct importance of taking meds as ordered & assist problem solving 30-day Reassessments:: Met Tobacco Use Tobacco Use: Non-smoker Hypertension Resting Blood Pressure:: 122/58 [place] [employer] Hypertension Guidelines Peak Exercise Blood Pressure:: 150/64 Outcomes/Goals: Able to verbalize/achieve optimal blood pressure <130/80 and Incorporates diet changes & exercise for blood pressure control by DC Interventions/plan: Instruct on optimal blood pressure, hypertension & medications and Instruct on effects of sodium, alcohol, stress, exercise &hypertension 30 day Reassessments:: Met Tobacco Cessation Referral Smoking Cessation Referral:: No Individual Education/Counseling:: No Education Schedule Given:: Yes Psychosocial - 30-Day Assess Target Goals Target Goals Referral to Behavioral Health PS - Interventions: Yes: Attend Stress Management Classes and No: Referral to Behavioral Health if PHQ-9 score >9:, No: Referral to [facility] and No: Referral to Physician if PHQ-9 if score is 5-9: Outcomes/Goals: See list Psychosocial Outcomes/Goals:: ID's personal stressors & 2 strategies to manage stress by discharge Psychosocial - 60-Day Assess VIsit Date of Eval: 12/29/23 Session #:: 20 Not Applicable: Yes History of previous Mental disease:: No Target Goals Target Goals Psychosocial Test Tool Used:: PHQ-9 Questionnaire phq-9 Severity Referral to Behavioral Health PS - Interventions: Yes: Attend Stress Management Classes and No: Referral to Behavioral Health if PHQ-9 score >9:, No: Referral to [facility] and No: Referral to Physician if PHQ-9 if score is 5-9: Outcomes/Goals: See list Psychosocial Outcomes/Goals:: ID's personal stressors & 2 strategies to manage stress by discharge Intervention/Plan: See List Interventions/Plan:: Assess stressors,coping strategies & signs of derpression on admission, Instruct/assist pt to develop coping & personal stress Mgt strategies, Instruct patient to recognize signs & symptoms of depression and Instruct patient to recog 30-day Reassessments: 30 day Reassessments:: Met Psychosocial - 90-Day Assess Target Goals Target Goals Referral to Behavioral Health PS - Interventions: Yes: Attend Stress Management Classes and No: Referral to Behavioral Health if PHQ-9 score >9:, No: Referral to [facility] and No: Referral to Physician if PHQ-9 if score is 5-9: Psychosocial - Final Assessmen Target Goals Target Goals Referral to Behavioral Health PS - Interventions: Yes: Attend Stress Management Classes and No: Referral to Behavioral Health if PHQ-9 score >9:, No: [facility] and No: Referral to Physician if PHQ-9 if score is 5-9: Nutrition - 90-Day Assessment Weight Mgt (Other Care) Height: 5 ft 3 in Weight:: 153 lb BMI: 27.1 Nutrition - Final Assessment Weight Mgt (Other Care) Height: 5 ft 3 in Weight:: 153 lb BMI: 27.1
[2023-12-29 05:11] VITALS: BP 122/58; BMI 27.1
== END 2024-01-14 23:59 ==
LOC: CR 09:30
PROVIDERS: PCP Family Medicine
DX: Z95.5 Presence of coronary angioplasty implant and graft (principal)
CPT/HCPCS: 93798

== ENCOUNTER 2024-01-29 09:30 | Outpatient (RCR) | payer MEDICARE, OTHER, SELFPAY ==
[2024-01-15 00:15] VITALS: BP 116/68; BP 122/58; BP 140/62; BMI 27.4
--- NOTE | 2024-01-29 13:32 | PCM.CR.ITP ---
Exercise - Initial Assessment Physician Prescribed Exercise Modalities: Treadmill, Schwinn Airdyne AD-7 and SciFit Stepper Nutrition - Initial Assessment Weight Mgt (Other Care) Height: 5 ft 3 in Weight:: 154 lb 8 oz BMI: 27.3 Psychosocial - Initial Assess Target Goals Target Goals Patient Health Questionnaire PHQ-9 Screening 90-Day Re-eval Assessment: 1. Little interest or pleasure in doing things: Not at all 2. Feeling down, depressed, or hopeless: Not at all 3. Trouble falling or staying asleep, or sleeping too much: Not at all 4. Feeling tired or having little energy: Not at all 5. Poor appetite or overeating: Not at all 6. Feeling bad about yourself -- or that you are a failure or have let yourself or your family down: Not at all 7. Trouble concentrating on things, such as reading the newspaper or watching television: Not at all 8. Moving or speaking so slowly that other people could have noticed. Or the opposite - being so fidgety or restless that you have been moving around a lot more than usual: Not at all 9. Thoughts that you would be better off , or of hurting yourself in some way: Not at all How difficult have these problems made it for you to do your work, take care of things at home, or get along with other people?: Not difficult at all Total Score: 0 Self-Efficacy 6-Item Scale 90-Day Re-eval Assessment: We would like to know how confident you are in doing certain activities. Please select your confidence level for: Fatigue Select Number: 10 Physical Discomfort or Pain Select Number: 10 Emotional Distress Other Symptoms or Health Problems Select Number: 10 Different Tasks and Activities Select Number: 10 Medication Select Number: 10 Nutrition Survey Nutrition Survey Instructions Scoring Instructions Exercise - 30-day Assessment Physician Prescribed Exercise Modalities: Treadmill, Schwinn Airdyne AD-7 and SciFit Stepper Exercise - 60-day Assessment Physician Prescribed Exercise Modalities: Treadmill, Schwinn Airdyne AD-7 and SciFit Stepper Exercise - 90-day Assessment Visit Date of Eval: 01/29/24 Session #:: 35 Physician Prescribed Exercise Modalities: Treadmill, Schwinn Airdyne AD-7 and SciFit Stepper Frequency: 3x/week for 12 weeks [36 sessions] Intensity: 60-80% of age predicted maximum heart rate reserve Duration: 30 - 45 minutes Current METSs:: 6 Target Heart Rate:: 100-129 Current RPE:: 12-13 Maximum Excercise HR:: 109 Resting Blood Pressure: 128/68 Maximum Exercise Blood Pressure: 148/72 EKG Type: NSR to ST with BBB Outcomes & Goals Goals:: Verbalizes understanding of THR, RPE & goal METS by session 6, Documents in home exercise log/reports 30 min aerobic 5 day/wk by DC, Demonstrates accurate pulse taking by DC and Other additional outcome/goals: see below Intervention & Plan Exercise Program Goals: Instruct on personal THR & RPE, Instruct on MET level & personal MET goal, Show patient to take own pulse /validate performance until accurate, Instruct on home exercise and Other additional plan/int 30-day Reassessments 30 day Reassessments:: Met Physical Activity Home Exercise Physical Activity - Home Exercise: Safe Exercise, Warm-up, Self-monitoring, Cool-Down, Home Exercise > 30 min Daily and Sitting Time <3 hours/daily Outcomes & Goals Outcomes/Goals: Demonstrates correct Warm-up/exercise Cool-Down (S3) if = 2.5 METs, Verbalizes symptoms of exercise intolerance by Session 3 (S3), Demonstrate safe equipment use (S3) & follows exercise prescrition (6) and Other: See below Intervention & Plan Plan/Intervention: Instruct warm-up & cool-down if exercising at > 2 METs, Instruct on symptoms of exercise intolerance & actions to take, Instruct & monitor on saf, Assess intial functional capacity & safety risk and Other See below 30-day Reassessments 30 day Reassessments:: Met Exercise - Final/Discharge Physician Prescribed Exercise Modalities: Treadmill, Schwinn Airdyne AD-7 and SciFit Stepper Nutrition - 30-Day Assessment Weight Mgt (Other Care) Height: 5 ft 3 in Weight:: 154 lb 8 oz BMI: 27.3 Nutrition - 60-Day Assessment Weight Mgt (Other Care) Height: 5 ft 3 in Weight:: 154 lb 8 oz BMI: 27.3 Core - 90 Day Assessment Visit Date of Eval: 01/29/24 Session #:: 35 Medication Compliance Preventative Medication(s):: Aspirin and Clopidogrel/P2Y12 inhibit H/O mental health issues: depression, anxiety, or addiction?: No Doesn?t believe in the benefits of treatment?: No Believes medications are unnecessary or harmful?: No Has a concern about medication side effects?: No Expresses concern over the cost of medications?: No Outcomes/Goals: Verbalizes medications,desired effect & common side effects @ DC, Pt self-reports following medication regimen, Keeps card in wallet w/medications listed by DC and Other additional outcome/goals: Interventions/plans: Instruct on medication effects & side effects, Review medication list w/patient every two weeks, Instruct importance of taking meds as ordered & assist problem solving and Other additional 30-day Reassessments:: Met Tobacco Use Tobacco Use: Non-smoker Hypertension Resting Blood Pressure:: 128/68 [place] [employer] Hypertension Guidelines Peak Exercise Blood Pressure:: 148/72 Outcomes/Goals: Able to verbalize/achieve optimal blood pressure <130/80, Incorporates diet changes & exercise for blood pressure control by DC and Other additional outcomes/goals Interventions/plan: Instruct on optimal blood pressure, hypertension & medications, Instruct on effects of sodium, alcohol, stress, exercise &hypertension and Other additional plan/interventions 30 day Reassessments:: Met Tobacco Cessation Referral Smoking Cessation Referral:: No Individual Education/Counseling:: No Education Schedule Given:: Yes Psychosocial - 30-Day Assess Target Goals Target Goals Psychosocial - 60-Day Assess Target Goals Target Goals Psychosocial - 90-Day Assess VIsit Date of Eval: 01/29/24 Session #:: 35 History of previous Mental disease:: No Target Goals Target Goals Outcomes/Goals: See list Psychosocial Outcomes/Goals:: ID's personal stressors & 2 strategies to manage stress by discharge and Other Additional outcome/goals: Intervention/Plan: See List Interventions/Plan:: Assess stressors,coping strategies & signs of derpression on admission, Instruct/assist pt to develop coping & personal stress Mgt strategies, Refer to Behavioral Health if appropriate, Refer to Physician if appropriate, Instruct patient to recognize signs & symptoms of depression, Instruct patient to recog and Other additional plan/intervention 30-day Reassessments: 30 day Reassessments:: Met Psychosocial - Final Assessmen Target Goals Target Goals Nutrition - 90-Day Assessment Program Goals Nutrition Program Goals Patient has diagnosis of Hyperlipidemia (ICD E78)?: Yes Visit Date of Eval: 01/29/24 Session #:: 35 Cholesterol/Lipids (Other Core Measures) Determine presence & major risk factors that modify LDL goal: Hypertension or hypertensive medication, Low HDL cholesterol <40 mg/dL*, Family history of premature CHD in Male < 55 years: female <65 yearsFa and Age men > 45 years; women >/= 55 years Outcomes/Goals: Pt IDs own risk factors & lifestyle modifications by Session 10, Verbalizes symptoms of angina & response by session 3., Pt independently manages and Other Additional Outcomes/Goals: Intervention/Plan: Advocate for lipid panel cholesterol medication if applicable, Instruct on personal lipid levels & lipid goals/NCEP guidelines, Instruct on cholesterol and Other additional plan/int 30-day Reassessments:: Met Diabetes (Other Core Measures) Diabetes Type: Not Applicable Weight Mgt (Other Care) Height: 5 ft 3 in Weight:: 154 lb 8 oz BMI: 27.3 Diagnosis Overweight/Obesity BMI> 30% ICD-10 E66: No Diagnosis High BMI/Morbid Obesity BMI> 35% ICD-10 Z68: No Outcomes/Goals: Pt sets, maintains & shows weight loss goal & trend during rehab and Other additional outcomes/goals Intervention/Plan: Instruct on ideal BMI & set weight loss goal w/patient, Assist pt to ID & incorporate diet changes for weight loss by S9, Refer to Structured Weight Loss program as appropriate, Encourage goal of using 250-300dcal per session for weight loss and Other additional plan/interventions 30 day Reassessments:: Met Healthy Eating Habits Will attend diet classes:: Yes Outcomes/Goals:: Consume diet rich in vegs,fruits,whole grain/high fiber,fish,lean meat, Limit sat/trans fats,cholesterol & added salts & sugars and Other additional outcome/goals: Intervention/Plan:: Assess current eating habits and Other Additional plan/interventions 30-day Reassessments:: Met Education Gave educational materials for:: Signs & symptoms of hypoglycemia, Signs & symptoms of hyperglycemia, Relate diabetes to coronary artery disease and Healthy eating Nutrition - Final Assessment Weight Mgt (Other Care) Height: 5 ft 3 in Weight:: 154 lb 8 oz BMI: 27.3
[2024-01-29 13:41] VITALS: BP 128/68
[2024-01-29 13:47] VITALS: BP 128/68; BMI 27.3
== END 2024-02-14 23:59 ==
LOC: CR 09:30
PROVIDERS: PCP Family Medicine
DX: Z95.5 Presence of coronary angioplasty implant and graft (principal)
CPT/HCPCS: 93798